=== PATIENT | female | born 1950 | race Caucasian/White ===

== ENCOUNTER 2017-04-07 07:23 | Day surgery (SDC) | payer MEDICARE, BC ==
--- NOTE | 2017-04-05 12:18 | EKG REPORT ---
SEVERITY:- NORMAL ECG - SINUS RHYTHM : Confirmed by: Ni Kingsley 05-Apr-2017 12:17:39
--- NOTE | 2017-04-06 17:01 | HISTORY AND PHYSICAL E ---
History and Physical NAME: JOHANA TARIQ : 1950 AGE: 67Y ADMITTED: 04/07/2017 ROOM: REFERRING: Referred to us by [facility]. CHIEF COMPLAINT: Patient here for colonoscopy. HISTORY: We saw the patient in 2006. Colonoscopy 2006 shows rectal polyp, 3 mm polyp ascending colon, sigmoid diverticulosis, multiple diverticulosis descending colon. At this time, patient is here for colon screening. Patient to be done in the OR. MEDICATIONS: 1. Celebrex. 2. Nexium. 3. Ambien. 4. Lopressor. 5. 6. Metformin. 7. Gabapentin. ALLERGIES: 1. SULFA. 2. PENICILLIN. SOCIAL HISTORY: . Quit smoking. Drinks rarely. SURGICAL HISTORY: 1. Upper scope, EGD 10 years ago. 2. Cholecystectomy. 3. Patient did have shoulder cuff surgery. REVIEW OF SYSTEMS: CARDIAC: Hypertension, syncope. RESPIRATORY: CPAP, sleep apnea. ENDOCRINE: Diabetes. GASTROINTESTINAL: Reflux, diverticulosis. NEUROPSYCHIATRIC: Depression. FAMILY HISTORY: Father had oral malignancy. Mom had Alzheimer's disease. PHYSICAL EXAMINATION: GENERAL: 67. VITAL SIGNS: Blood pressure is 120/70, pulse 60, respirations 18, temp is 98. HEENT: Normal. NECK: Supple. CARDIOVASCULAR: Normal. LUNGS: Clear. ABDOMEN: Soft. NEUROLOGIC: Negative. CONCLUSION: Colon screening. PLAN: Colonoscopy to be done in the OR. DICTATING PHYSICIAN: JAYRO VO M.D. [id number] PHY#: [id number] ID: [id number] JOB#: [id number] ACCT: [id number] cc: >
--- NOTE | 2017-04-06 17:03 | HISTORY AND PHYSICAL E ---
History and Physical NAME: JOHANA TARIQ : 1950 AGE: 67Y ADMITTED: 04/07/2017 ROOM: REFERRING: [facility] CHIEF COMPLAINT: Colon screening. HISTORY: Known to pr 2016 for colon exam. Colonoscopy 2006 showing diverticulosis, sigmoid rectal polyp, external hemorrhoids. At this time, patient for followup screening colonoscopy. ALLERGIES: 1. SULFA. 2. PENICILLIN. REVIEW OF SYSTEMS: CARDIAC: Hypertension, syncope. RESPIRATORY: Sleep apnea. GASTROINTESTINAL: Reflux. RECTAL: Colon screening diverticulosis. Constipation. NEUROPSYCHIATRIC: Depression. Osteoarthritis. FAMILY HISTORY: Father , had colon cancer. Mom had old age, Alzheimer's. SOCIAL HISTORY: . She quit smoking. PAST SURGICAL HISTORY: 1. Patient had colonoscopy in 2006 diverticulosis. 2. Cholecystectomy [facility]. 3. Bilateral knee surgery. 4. Shoulder cuff surgery. MEDICATIONS: 1. Lipitor. 2. Celebrex. 3. Cymbalta. 4. Ambien. In [address] Hamilton. PHYSICAL EXAMINATION: VITAL SIGNS: Blood pressure is 120/80, pulse 80, respirations 20, temp is 98, weight 240. HEENT: Normal. NECK: Supple. LUNGS: Clear. ABDOMEN: Soft. NEUROLOGIC: Negative. CONCLUSION: Colon screening. DICTATING PHYSICIAN: JAYRO VO M.D. [id number] PHY#: [id number] ID: [id number] JOB#: [id number] ACCT: [id number] cc: >
[~2017-04-07 07:23] MED LIST: LACTATED RINGERS 1000 ML IV PRN; LIDOCAINE 0.5% INJ-PF (5 MG/ML) 50 ML SDV SUBCUT PRN
[2017-04-07] MEDS ORDERED: GLUCAGON,HUMAN RECOMB 1 MG INJ ONE (07:41)
[2017-04-07] MEDS ORDERED: LIDOCAINE 2% JELLY 30 ML TUBE ONE (07:41)
[2017-04-07] MEDS ORDERED: MIDAZOLAM 2 MG/2 ML INJ ONE (08:40)
[2017-04-07] MEDS ORDERED: PROPOFOL INJ 200 MG/20 ML VIAL IV ONE (08:40)
[2017-04-07] MEDS ORDERED: KETAMINE HCL INJ 500 MG/10 ML VIAL ONE (08:40)
[2017-04-07] MEDS ORDERED: MORPHINE SULFATE 10 MG/ML INJ IV PRN (09:24)
[2017-04-07] MEDS ORDERED: MEPERIDINE HCL/PF INJ 25 MG/1 ML DISP.SYRIN IV PRN (09:24)
[2017-04-07] MEDS ORDERED: PROMETHAZINE HCL INJ 25 MG/1 ML VIAL IV PRN ×3 (09:24→09:57)
[2017-04-07] MEDS ORDERED: DIPHENHYDRAMINE HCL 50 MG/ML VIAL IV PRN (09:24)
[2017-04-07] MEDS ORDERED: FENTANYL CITRATE INJ/PF 100 MCG/2 ML AMPUL IV PRN ×3 (09:24)
[2017-04-07] MEDS ORDERED: OXYCODONE-ACETAMINOPHEN 5-325 MG TABLET PO PRN ×2 (09:24)
[2017-04-07] MEDS ORDERED: LIDOCAINE 2% VISCOUS SOLN 20 ML UDCUP MM PRN (09:55)
[2017-04-07] MEDS ORDERED: ACETAMINOPHEN 325 MG TABLET PO PRN (09:56)
[2017-04-07] MEDS ORDERED: SIMETHICONE 80 MG TAB.CHEW PO PRN (09:57)
[2017-04-07 11:35] VITALS: BP 107/63
--- NOTE | 2017-04-07 16:12 | OPERATIVE REPORT E ---
Operative Report NAME: JOHANA TARIQ : 1950 AGE: 67Y DATE OF SURGERY: 04/07/2017 ROOM: PREOPERATIVE DIAGNOSIS: COLON SCREENING. POSTOPERATIVE DIAGNOSIS: 1. SEVERE DIVERTICULOSIS, SIGMOID DESCENDING COLON. 2. LIPOMA IN THE CECUM. 3. SESSILE VILLOUS POLYP IN THE CECUM. PROCEDURE: Colonoscopy. SURGEON: JAYRO VO M.D. ANESTHESIA: Done in the OR with anesthesia standby. TISSUE REMOVED OR ALTERED: Biopsy. Polyps, cecum. DESCRIPTION: RECTAL EXAM: External hemorrhoids. SIGMOID/DESCENDING COLON: Severe diverticulosis. TRANSVERSE COLON: Normal. ASCENDING COLON: Normal. CECUM: Shows 1 cm lipoma and 1 to 2 villous lobulated polyp in the cecum, most likely villous adenoma. Sessile polyp; biopsy obtained. Scope withdrawn, cecum and ascending, transverse, descending, sigmoid all the way to the rectum. CONCLUSION: A VILLOUS POLYP. BIOPSY OBTAINED. PLAN: 1. Awaiting biopsy. 2. Hold aspirin and nonsteroidal 5 days. 3. CEA, Chem profile. 4. Consider surgical consult for right colon resection: Lipoma (cecum) and villous adenoma polyp. Consider right colon resection pending biopsy results. DICTATING PHYSICIAN: JAYRO VO M.D. [id number] PHY#: [id number] ID: [id number] JOB#: [id number] ACCT: [id number] cc:VERÓNICA DOTSON M.D. JAYRO VO M.D. >
--- NOTE | 2017-04-07 16:17 | DISCHARGE SUMMARY E ---
Discharge Summary NAME: JOHANA TARIQ : 1950 AGE: 67Y ADMITTED: 04/07/2017 DISCHARGED: 04/07/2017 04/07/2017 HISTORY: The patient is a 67-year-old female ALLERGIC TO PENICILLIN AND SULFA. I saw her 10 years ago as she has diverticulosis. Today's colonoscopy shows villous polyp in the cecum and severe diverticulosis of the sigmoid and descending colon. She did have a lipoma in the cecum. Patient does have sleep apnea, CPAP, diverticulosis, and reflux. DISCHARGE PLAN: Awaiting biopsy results, chem profile. Patient may need a right hemicolectomy secondary to villous polyp pending biopsy and lipoma in the cecum. DICTATING PHYSICIAN: JAYRO VO M.D. [id number] Y#: [id number] ID: [id number] JOB#: [id number] ACCT: [id number] cc:Rosa PEREA M.D. >
== END 2017-04-07 11:05 | disposition home or self-care (01) ==
LOC: END 07:23
PROVIDERS: ATTEND Specialist
PROC: 0DBH8ZX Excision of Cecum, Via Natural or Artificial Opening Endoscopic, Diagnostic (ICD-10-PCS; principal; 2017-04-07 09:15)
DX: Z12.11 Encounter for screening for malignant neoplasm of colon (principal); K57.30 Diverticulosis of large intestine without perforation or abscess without bleeding; K64.4 Residual hemorrhoidal skin tags; K21.9 Gastro-esophageal reflux disease without esophagitis; I10 Essential (primary) hypertension; R55 Syncope and collapse; E11.9 Type 2 diabetes mellitus without complications; F32.9 Major depressive disorder, single episode, unspecified; G47.30 Sleep apnea, unspecified; Z79.1 Long term (current) use of non-steroidal anti-inflammatories (NSAID); Z88.0 Allergy status to penicillin; Z79.899 Other long term (current) drug therapy; Z88.2 Allergy status to sulfonamides; Z79.84 Long term (current) use of oral hypoglycemic drugs; Z87.891 Personal history of nicotine dependence
CPT/HCPCS: 45380; 93005; 82962; 88305 ×2; 93010; J2250; J1610; J3490; J2704; 810

== ENCOUNTER → 2018-05-19 | Day surgery (SDC) | payer MEDICARE, BC ==
[~2018-05-19] MED LIST changes: -LACTATED RINGERS 1000 ML IV PRN; -LIDOCAINE 0.5% INJ-PF (5 MG/ML) 50 ML SDV SUBCUT PRN; +LIDOCAINE 1%/EPINEPHRINE INJ 20 ML VIAL ONE
--- NOTE | 2018-05-19 22:01 | OPERATIVE REPORT E ---
Operative Report NAME: JOHANA TARIQ : 1950 AGE: 68Y DATE OF SURGERY: 05/19/2018 ROOM: PREOPERATIVE DIAGNOSIS: Abnormal cluster microcalcifications 4 o'clock position of left breast. POSTOPERATIVE DIAGNOSIS: Abnormal cluster microcalcifications 4 o'clock position of left breast. OPERATION: 1. Stereotactically direct incision mammotomy core biopsies x10, left breast. 2. Placement of clip marker in biopsy cavity. 3. Interpretation of intraoperative mammograms and specimen radiograph. SURGEON: ANUP LIVE M.D. ANESTHESIA: Lidocaine 1% plain. COMPLICATIONS: None. ESTIMATED BLOOD LOSS: Minimal. DRAINS: None. TISSUE REMOVED: Cores, left breast. PROCEDURE: Patient was taken from the Radiology holding area to the mammography suite where the left breast was placed in compression and the microcalcification in the outer lateral aspect of the left breast were localized using a caudal cranial approach. Stereotactic coordinates were arrived at. The surface of the left breast was prepped with Betadine anesthetized with 1% lidocaine with epinephrine. A mammotomy was made with an 11 blade and the Mammotome advanced to the appropriate depth. Pre and post fire films showed good alignment between the microcalcifications and the tip of the Mammotome. We proceeded to perform stereotactic biopsy of the microcalcifications in the lower hemisphere of the target zone. Approximately 10 cores were taken. Cores were placed in a container and image with a specimen radiograph. Demonstration of microcalcifications was confirmed in the retrieved specimen. We placed a clip marker, photographed the breast and confirmed marker retention in the cavity. The Mammotome was released from the patient's breast. She tolerated procedure well. The breast was taken out of compression. Discharge instructions provided. DICTATING PHYSICIAN: ANUP LIVE M.D. [id number] PHY#: [id number] ID: [id number] JOB#: [id number] ACCT: [id number] cc:ANUP LIVE M.D. > MTDD
--- NOTE | 2018-05-26 09:02 | WOMENS IMAGING REPORT ---
EXAM DESCRIPTION: STEREO BREAST BX; LEFT DIG DX MAMMO NO CHG COMPLETED DATE/TIME: 05/19/2018 12:29 pm REASON FOR STUDY: R92.0 MAMMOGRAPHIC MICROCALCIFICATION FOUND ON DIAGNOSTIC IMAGING OF BREAST; LT BR EAST POST STEREO BIOPSY R92.0 MAMMOGRAPHIC MICROCALCIFICATION FOUND ON DX IMAGING OF COMPARISON: Outside mammograms LIMITATIONS: None. PROCEDURE: Vacuum-assisted stereotactic-guided biopsy of the lesion in the left breast performed by Dr. Bello who also targeted the lesion. Using stereotactic guidance, a vacuum-assisted core biopsy of the targeted lesion was performed. A p ellet clip was deployed at the biopsy site. Post procedure image reveals the clip at the biopsy site . TECHNIQUE: Images from the stereotactic unit acquired during the procedure. Specimen radiography performed. Yes. Post- procedure image acquired post-clip placement. Yes. Post procedure 2 view mammograms performed in the mammography suite. Yes. FINDINGS: SPECIMEN RADIOGRAPH:Calcifications identified.. POST PROCEDURE MAMMOGRAMS FOR MARKER PLACEMENT: Yes. POST PROCEDURE MAMMOGRAM: Clip is in expected location. No significant hematoma. PATHOLOGY: Ductal carcinoma in situ CONCORDANT: Yes. The operating surgeon was notified of the findings. IMPRESSION: SUCCESSFUL STEREOTACTIC-GUIDED BIOPSY OF LESION IN THE LEFT BREAST. BIOPSY RESULTS ARE CONCORDANT WITH IMAGING FINDINGS. FOLLOW-UP: PER SURGEON COMMENT: BI-RADS 6 left breast, known malignancy, appropriate action should be taken TECHNICAL DOCUMENTATION: JOB ID: [id number] [employer]- All Rights Reserved Reading location - IP/workstation name: [email or web address]
== END ==
LOC: RAD 09:48
PROVIDERS: ATTEND Surgery
DX: D05.12 Intraductal carcinoma in situ of left breast (principal); R92.0 Mammographic microcalcification found on diagnostic imaging of breast; R92.2 Inconclusive mammogram
CPT/HCPCS: 88305 ×2; 88342; 19081; J3490

== ENCOUNTER 2018-07-06 08:41 | Day surgery (SDC) | payer MEDICARE, BC ==
--- NOTE | 2018-06-29 10:13 | EKG REPORT ---
SEVERITY:- NORMAL ECG - SINUS RHYTHM : Confirmed by: Tressa Dooley MD 29-Jun-2018 10:11:49
[2018-06-29 10:15] LABS: HEMATOCRIT 47.6 % (36.0-47.0); HEMOGLOBIN 16.4 g/dL (12.0-15.5); MEAN CORPUSCULAR HGB CONC 34.4 g/dL (32.0-36.0); MEAN CORPUSCULAR VOLUME 90 fl (80-97); PLATELET COUNT 222 10^3/uL (150-450); RED BLOOD COUNT 5.28 10^6/uL (3.72-5.28); RED CELL DISTRIBUTION WIDTH 13.5 % (11.5-14.0); WHITE BLOOD COUNT 7.5 10^3/uL (4.0-10.5)
[2018-06-29 10:41] LABS: ANION GAP 9 (5-19); BLOOD UREA NITROGEN 29 mg/dL (7-20); CALCIUM 10.2 mg/dL (8.4-10.2); CARBON DIOXIDE 29 mmol/L (22-30); CHLORIDE 104 mmol/L (98-107); GLUCOSE 143 mg/dL (75-110); POTASSIUM 5.1 mmol/L (3.6-5.0)
[~2018-07-06 08:41] MED LIST changes: +CEFAZOLIN 1 GM/D5W RTU 1 GM/50 ML RTUPB IV ONE; +CEFAZOLIN 1 GM/D5W RTU 1 GM/50 ML RTUPB IV PRN; +DEXAMETHASONE SOD PHOSPHATE INJ 4 MG/1 ML VIAL ONE; +KETOROLAC TROMETHAMINE 60 MG/2 ML SDV ONE; +LACTATED RINGERS 1000 ML IV PRN; +LIDOCAINE 0.5% INJ-PF (5 MG/ML) 50 ML SDV SUBCUT PRN; -LIDOCAINE 1%/EPINEPHRINE INJ 20 ML VIAL ONE; +LIDOCAINE 4% TRANSPARENT DRESSING 5 GM KIT ONE; +LIDOCAINE 4% TRANSPARENT DRESSING 5 GM KIT TP PRN; +ONDANSETRON HCL INJ/PF 4 MG/2 ML SDV ONE; +ROCURONIUM BROMIDE INJ 50 MG/5 ML VIAL IV ONE; +SUCCINYLCHOLINE CHLORIDE INJ 200 MG/10 ML VIAL ONE; +VECURONIUM BROMIDE INJ 10 MG VIAL IV ONE
[2018-07-06] MEDS ORDERED: LIDOCAINE 2% INJ (20 MG/ML) 20 ML MDV ONE (10:03)
[2018-07-06] MEDS ORDERED: FENTANYL CITRATE INJ/PF 100 MCG/2 ML AMPUL ONE ×2 (11:12→13:22)
[2018-07-06] MEDS ORDERED: MIDAZOLAM 2 MG/2 ML INJ ONE (11:13)
[2018-07-06] MEDS ORDERED: PROPOFOL INJ 200 MG/20 ML VIAL IV ONE (11:13)
--- NOTE | 2018-07-06 13:00 | RADIOLOGY REPORT (SQ) ---
EXAM DESCRIPTION: NM LYMPHATICS/LYMPH GLANDS COMPLETED DATE/TIME: 07/06/2018 10:25 am REASON FOR STUDY: LT BREAST CA C50.912 MALIGNANT NEOPLASM OF UNSPECIFIED SITE OF LEFT FEMAL Z79.01 INTERMEDIATE (CURRENT) USE OF ANTICOAGULANTS COMPARISON: None. RADIONUCLIDE AND DOSE: 547 microcuries TC-99m tilmanocept - [employer]. The route of agent administration: Subcutaneous in the skin. TECHNIQUE: The skin of the left breast was prepped in sterile fashion. The radiopharmaceutical was administered in equally divided doses in the periareolar breast. LIMITATIONS: None. FINDINGS: Images demonstrate activity at the injection site. IMPRESSION: ADMINISTRATION OF RADIOPHARMACEUTICAL FOR SENTINEL LYMPH NODE EVALUATION. TECHNICAL DOCUMENTATION: JOB ID: [id number] [employer]- All Rights Reserved Reading location - IP/workstation name: [email or web address]
[2018-07-06] MEDS ORDERED: LIDOCAINE 2% INJ-PF (20 MG/ML) 10 ML AMPUL ONE (13:13)
[2018-07-06] MEDS ORDERED: LIDOCAINE 1%/EPINEPHRINE INJ 20 ML VIAL ONE (13:34)
[2018-07-06] MEDS ORDERED: MICROFIBRILLAR COLLAGEN 1 GM PACK ONE (13:34)
[2018-07-06] MEDS ORDERED: METHYLENE BLUE 50 MG/10 ML AMPULE ONE (13:34)
[2018-07-06] MEDS ORDERED: OXYCODONE-ACETAMINOPHEN 5-325 MG TABLET PO PRN ×3 (14:17→15:18)
[2018-07-06] MEDS ORDERED: DIPHENHYDRAMINE HCL 50 MG/ML VIAL IV PRN (14:17)
[2018-07-06] MEDS ORDERED: MORPHINE SULFATE 10 MG/ML INJ IV PRN (14:17)
[2018-07-06] MEDS ORDERED: FENTANYL CITRATE INJ/PF 100 MCG/2 ML AMPUL IV PRN ×3 (14:17)
[2018-07-06] MEDS ORDERED: MEPERIDINE HCL/PF INJ 25 MG/1 ML DISP.SYRIN IV PRN (14:17)
[2018-07-06] MEDS ORDERED: PROMETHAZINE HCL INJ 25 MG/1 ML VIAL IV PRN ×2 (14:17)
--- NOTE | 2018-07-06 15:16 | Operative Report ---
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 Needle localized open right breast biopsy. 2. Lymph node biopsy left axilla using dual mapping technique. 3. Interpretation of intraoperative specimen imaging SURGEON: ANUP LARIOS METAL MIXER: AMOS STANLEY ANESTHESIA: GA TISSUE REMOVED OR ALTERED: Left breast open lumpectomy specimen and sentinel lymph node left axilla COMPLICATIONS: None ESTIMATED BLOOD LOSS: Minimal INTRAOPERATIVE FINDINGS: See below PROCEDURE: Patient was seen in the preop holding area after undergoing lymphoscintigraphy the left breast there was an area of increased uptake in the left axilla. The patient also went needle localization of the microcalcifications and clip marker left breast at the site of the previous stereotactic biopsy. This is performed by Dr. Fajardo. The patient was then taken to the main operating room where general anesthesia was induced. Surgical plan and surgical timeout conducted. The left arm was abducted carefully, the left breast exposed, excess wire and hub of the localizing needle cut with the electronic wirer. 2 cc of injected into the left breast intradermally at the 2 o'clock position areolar border. The left breast was massaged, and the left breast and axilla were prepped and draped with Betadine Surgical plan and surgical timeout were conducted. Review of the needle localization mammography and discussion with Dr. Fajardo revealed the needle and wire to be adjacent to the clip marker inserted in the inferior aspect of the left breast 6 o'clock position. Skin was anesthetized with 1% plain lidocaine. Approximately 4-1/2 cm incision was made medial to the insertion site of the localization needle, horizontal to the breast at the 530 6 o'clock position. A lumpectomy was now performed using electrocautery and blunt finger dissection. The specimen was approximately 7 cm in diameter. It contained the wire and needle. It was removed from the left breast, marked with a long suture in the lateral position short suture in the superior position. It was then placed on a Chetan dish and imaged in the portable radiograph machine into different axes. The findings are significant for retention of stereotactically placed clip marker and residual microcalcifications in the center of the lumpectomy specimen. This was confirmed by Dr. Fajardo, the radiologist. We felt that the lumpectomy portion of the operation was complete We returned to the low axilla, found a hot spot with the neoprobe, and the status of skin with 1% plain lidocaine, and made a small 3 cm incision in the low left axilla a single hot blue sentinel lymph node was identified at the first lower level of the axilla which had an in vivo count of 7274 and an ex vivo count of 9294. Was sent for permanent analysis as sentinel lymph node left axilla blue and hot. We returned to the axilla with the neoprobe and found minimal residual activity. The sentinel lymph node biopsy portion of the operation was complete. Hemostasis was achieved with electrocautery. Avitene was placed in the recesses of both wounds, wounds closed with 3-0 Vicryl and Dermabond glue. Patient tolerated the procedure well, extubated, and taken to recovery in stable condition. The physician physician assistant surgery, Ms. Dow, provided assistance during this case by: Assisting , retracting tissue, instillation of local anesthesia and closure of skin incisions
--- NOTE | 2018-07-06 15:18 | Discharge Summary ---
Discharge Summary (SDC) - Discharge Final Diagnosis: Left breast high grade DCIS Date of Surgery: 07/06/18 Discharge Date: 07/06/18 Condition: Stable Treatment or Instructions: [facility] [address] [place], [place] [id number] Care Instructions Following Your Lumpectomy Activities: Resume normal activities when you feel comfortable. It is best to remain as active as possible to speed your recovery. It is common to experience some fatigue after surgery and you may find that short naps are helpful. Avoid strenuous activity such as weight lifting, tennis, etc at your surgical site for two weeks. Perform gentle arm exercises daily and do not favor your operative arm to due increased risk of mobility issues postoperatively. No driving for 7 days after surgery. Do not drive if you are taking pain medication other than Tylenol or Ibuprofen. No swimming, tub baths or soaking in a hot tub for 4 weeks. There are no dietary restrictions. Do not smoke as this impairs wound healing. Surgical Site care: You may shower after 24 hours, leaving skin glue intact. Wash the wound with soap and water using your hands. Do not scrub the incision. Pat the area dry with a towel. You do not need to recover the wound although some patients find that they feel more comfortable using a light dressing for a few days to absorb any minimal drainage which may occur. Do not use heating pad or apply an ice pack to the operative site. You may apply deodorant if you are careful to avoid getting it on the wound itself. Medications: Take Toradol 10 mg one pill by mouth every six hours as needed for pain. Follow-up: Call our office at to make a follow-up appointment in 10-14 days. Your doctor will call to discuss the pathology report with you as soon as it is available. Concerns: If you had a sentinel lymph node biopsy with your mastectomy, your urine may have a greenish discoloration. This is normal and will resolve as the blue dye slowly leaves your system. If you notice significant leakage around the drains , this is not normal. The drains may be clogged. Please call our office to come in immediately for the drains to be checked. Some bruising may occur and will go away over time. If you have a fever of 101.5 or greater, chills, redness at the incision site, excessive drainage from your wound or severe pain not relieved by pain medication, call your doctor. A physician is available 24 hours a day 7 days a week in addition to regular office hours. If problems arise after normal office hours please call the hospital at . Please call if you have any questions or concerns. Prescriptions: Ketorolac Tromethamine [Toradol 10 mg Tablet] 10 mg PO Q6HP PRN #20 tablet PRN Reason: Referrals: VERÓNICA DOTSON MD [Primary Care Provider] - Discharge Diet: As Tolerated Discharge Activity: Walk Frequently Report the Following to Your Physician Immediately: Fever over 101 Degrees, Unusual Bleeding, Redness, Swelling, Warmth, Drainage-Foul Smelling
[2018-07-06] MEDS: FENTANYL CITRATE INJ/PF 100 MCG/2 ML AMPUL ONE ×4 (15:27→15:50)
[2018-07-06] MEDS ORDERED: MORPHINE SULFATE 10 MG/ML INJ ONE (15:53)
[2018-07-06] MEDS ORDERED: OXYCODONE-ACETAMINOPHEN 5-325 MG TABLET ONE (16:37)
[2018-07-06 17:47] VITALS: BP 151/88
== END 2018-07-06 17:39 | disposition home or self-care (01) ==
LOC: OROUT 08:41
PROVIDERS: ATTEND Surgery
DX: C50.912 Malignant neoplasm of unspecified site of left female breast (principal); I10 Essential (primary) hypertension; E11.9 Type 2 diabetes mellitus without complications; M19.90 Unspecified osteoarthritis, unspecified site; Z79.1 Long term (current) use of non-steroidal anti-inflammatories (NSAID); Z79.84 Long term (current) use of oral hypoglycemic drugs; Z79.899 Other long term (current) drug therapy; Z79.82 Long term (current) use of aspirin; E66.9 Obesity, unspecified; Z68.32 Body mass index [BMI] 32.0-32.9, adult; Z88.0 Allergy status to penicillin; Z01.818 Encounter for other preprocedural examination
CPT/HCPCS: 93005; 36415 ×2; 82962; 84132; 85027; 80048; 88342 ×2; 88307 ×2; 78195; 93010; 19281; 76098; 19301; 38500; A9520; J2250; J3490 ×7; J0690; J1100; J1885; J3010; J2270; A9270; J0330; J2405; J2704; Q9968; 1610

== ENCOUNTER → 2018-09-27 | Outpatient (CLI) | payer MEDICARE, BC ==
[2018-09-27 11:48] LABS: ABSOLUTE BASOPHILS # (AUTO) 0.1 10^3/uL (0.0-0.2); ABSOLUTE EOSINOPHILS # (AUTO) 0.5 10^3/uL (0.0-0.6); ABSOLUTE LYMPHOCYTES (AUTO) 1.7 10^3/uL (0.5-4.7); ABSOLUTE MONOCYTES (AUTO) 0.5 10^3/uL (0.1-1.4); ABSOLUTE NEUT (AUTO) 4.5 10^3/uL (1.7-8.2); BASOPHILS % (AUTO) 0.9 % (0-2); EOSINOPHILS % (AUTO) 6.4 % (0-6); LYMPHOCYTES % (AUTO) 23.5 % (13-45); MEAN CORPUSCULAR HEMOGLOBIN 31.2 pg (27.0-33.4); MEAN CORPUSCULAR HGB CONC 34.9 g/dL (32.0-36.0); MEAN CORPUSCULAR VOLUME 90 fl (80-97); MONOCYTES % (AUTO) 6.9 % (3-13); PLATELET COUNT 231 10^3/uL (150-450); RED BLOOD COUNT 5.14 10^6/uL (3.72-5.28); RED CELL DISTRIBUTION WIDTH 13.3 % (11.5-14.0); SEGMENTED NEUTROPHILS % (AUTO) 62.3 % (42-78); TOTAL CELLS COUNTED % (AUTO) 100 %; WHITE BLOOD COUNT 7.3 10^3/uL (4.0-10.5)
[2018-09-27 12:17] LABS: ALANINE AMINOTRANSFERASE 14 U/L (9-52); ALBUMIN 4.4 g/dL (3.5-5.0); ALKALINE PHOSPHATASE 77 U/L (38-126); ASPARTATE AMINO TRANSFERASE 22 U/L (14-36); BILIRUBIN,DIRECT 0.3 mg/dL (0.0-0.4); BILIRUBIN,TOTAL 0.8 mg/dL (0.2-1.3); TOTAL PROTEIN 6.8 g/dL (6.3-8.2)
== END ==
LOC: OD 11:12
PROVIDERS: ATTEND Radiology Radiation Oncology
DX: D05.12 Intraductal carcinoma in situ of left breast (principal); Z17.0 Estrogen receptor positive status [ER+]; Z79.899 Other long term (current) drug therapy
CPT/HCPCS: 36415; 80076; 85025

== ENCOUNTER 2019-05-11 10:15 | Day surgery (SDC) | payer MEDICARE, BC ==
[~2019-05-11 10:15] MED LIST changes: -CEFAZOLIN 1 GM/D5W RTU 1 GM/50 ML RTUPB IV ONE; -CEFAZOLIN 1 GM/D5W RTU 1 GM/50 ML RTUPB IV PRN; -DEXAMETHASONE SOD PHOSPHATE INJ 4 MG/1 ML VIAL ONE; +FENTANYL CITRATE INJ/PF 100 MCG/2 ML AMPUL ONE; +KETOROLAC TROMETHAMINE 0.45% 4 DROP/0.4 ML DROPERETTE OS PRN; -KETOROLAC TROMETHAMINE 60 MG/2 ML SDV ONE; -LACTATED RINGERS 1000 ML IV PRN; -LIDOCAINE 0.5% INJ-PF (5 MG/ML) 50 ML SDV SUBCUT PRN; -LIDOCAINE 4% TRANSPARENT DRESSING 5 GM KIT ONE; -LIDOCAINE 4% TRANSPARENT DRESSING 5 GM KIT TP PRN; +MIDAZOLAM 2 MG/2 ML INJ ONE; -ONDANSETRON HCL INJ/PF 4 MG/2 ML SDV ONE; -ROCURONIUM BROMIDE INJ 50 MG/5 ML VIAL IV ONE; -SUCCINYLCHOLINE CHLORIDE INJ 200 MG/10 ML VIAL ONE; -VECURONIUM BROMIDE INJ 10 MG VIAL IV ONE
[2019-05-11] MEDS: TROPICAMIDE 1% OPH SOLN 3 ML OS PRN ×3 (10:48→11:08)
[2019-05-11] MEDS: CYCLOPENTOLATE 0.2%/PHENYLEPHRINE 1% OPH SOLN 2 ML OS PRN ×3 (10:48→11:08)
[2019-05-11] MEDS: TETRACAINE HCL 0.5% OPH SOLN 4 ML OS PRN ×4 (10:48→11:19)
[2019-05-11] MEDS: BESIFLOXACIN HCL 0.6% OPH SUSP 5 ML BOTTLE OS PRN ×4 (10:48→11:44)
[2019-05-11] MEDS: LIDOCAINE 1%/PHENYLEPHRINE 1.5% 1 ML VIAL ONE ×2 (11:35)
[2019-05-11] MEDS: EPINEPHRINE INJ/PF 1 MG/1 ML AMPULE ONE ×2 (11:35)
[2019-05-11] MEDS: CHONDR SU A NA/HYALUR INTRAOC KIT (SURGICARE) ONE ×2 (11:35)
[2019-05-11] MEDS: DORZOLAMIDE HCL 2%/TIMOLOL MALEAT 0.5% OPH SOLN 10 ML OS PRN ×2 (11:44)
--- NOTE | 2019-05-11 13:41 | Operative Report ---
Operative Report-[facility] Operative Report: DATE OF SURGERY: 05/11/2018 PREOPERATIVE DIAGNOSIS: Cataracts, left eye POSTOPERATIVE DIAGNOSIS: Cataract, left eye OPERATION: Cataract extraction with insertion of an toric IOL of the left eye. Intraocular Lens Model: [19.0 sn6at4 rotated to 174 degrees] SURGEON: Henok Ruth MD ANESTHESIA: Topical PROCEDURE: After obtaining appropriate consent, the patient's left eye was prepped and draped in a sterile fashion as well as the surgeon in the sterile manner and cataract surgery was started. First a paracentesis blade was used to make a side-port incision. Viscoelastic was used to inflate the anterior chamber. Next a 2.4 mm incision was made with a 2.4 mm blade, clear corneal temporarily. A continuous capsulorrhexis was made using a cystotome and Utrata forceps. Following this hydrodissection was carried out to make commands fully loose and mobile and it was rotated 90 degrees. Following this, a divide and conquer technique was used to phacoemulsify the lens. The remaining cortex was removed with an irrigation/aspiration. Provisc was instilled into the capsular bag to inflate the bag.The intracular lens was placed. The remaining viscoelastic material was removed with irrigation/aspiration. Following this, the incision was found to be watertight. Besivance and Cosopt was instilled into the eye and a protective shield was placed over the eye. The patient was turned to the postoperative recovery in a stable condition.
--- NOTE | 2019-05-11 13:42 | PDOC DISCHARGE SUMMARY ---
Discharge Summary-[facility] Discharge Summary: DATE OF SURGERY: 05/11/2019 PREOPERATIVE DIAGNOSIS: Cataract, left eye POSTOPERATIVE DIAGNOSIS: Cataract, left eye OPERATION: Cataract extraction with insertion of an toricIOL of the left eye. SURGEON: Henok Ruth MD ANESTHESIA: Topical The patient underwent surgery because they are having dificulty seeing small print . They're to be on a regular diet, no bending at their waist, and no heavy lifting. They should use the prescribed antibiotic, NSAID, and steroid at 3 PM and 8 PM. They should sleep with a rigid shield and I will see them for 1 day postoperative tomorrow.
== END 2019-05-11 12:19 | disposition home or self-care (01) ==
LOC: SC 10:15
PROVIDERS: ATTEND Internal Medicine
DX: H25.12 Age-related nuclear cataract, left eye (principal); Z96.1 Presence of intraocular lens; J44.9 Chronic obstructive pulmonary disease, unspecified; Z87.891 Personal history of nicotine dependence; I10 Essential (primary) hypertension; E11.9 Type 2 diabetes mellitus without complications; G47.33 Obstructive sleep apnea (adult) (pediatric); Z85.828 Personal history of other malignant neoplasm of skin
CPT/HCPCS: 66984; 82962; V2787; J2250; J3490 ×2; A9270; J0171; J3010; J2370; 142